=== PATIENT | female | born 1965 | race Caucasian/White ===

== ENCOUNTER → 2020-12-24 | Day surgery (SDC) | payer OTHER ==
[~2020-12-24] MED LIST: BENICAR20 MG PO; FLOMAX0.4 MG PO; LEXAPRO20 MG PO; LIPITOR40 MG PO; NORCO 5-325 TA1 EACH PO; ZOFRAN4 M1 PO
== END | disposition home or self-care (01) ==
LOC: FAS 07:43
DX: Z12.11 Encounter for screening for malignant neoplasm of colon (principal); K57.30 Diverticulosis of large intestine without perforation or abscess without bleeding; I10 Essential (primary) hypertension; M19.90 Unspecified osteoarthritis, unspecified site; F32.9 Major depressive disorder, single episode, unspecified; Z20.822 Contact with and (suspected) exposure to COVID-19; Z87.19 Personal history of other diseases of the digestive system; Z98.890 Other specified postprocedural states; Z80.3 Family history of malignant neoplasm of breast; Z91.013 Allergy to seafood
CPT/HCPCS: J7120

== ENCOUNTER 2021-05-10 12:12 | Emergency (ER) | payer OTHER ==
[~2021-05-10 12:12] MED LIST changes: -FLOMAX0.4 MG PO; -NORCO 5-325 TA1 EACH PO; -ZOFRAN4 M1 PO
[2021-05-10 13:18] LABS: BILIRUBIN NEGATIVE (NEGATIVE); BLOOD 2+ Ery/uL (NEGATIVE); CLARITY CLEAR (CLEAR); COLOR YELLOW (YELLOW); GLUCOSE (U) NORMAL (NORMAL); LEUKOCYTES NEGATIVE Leu/uL (NEGATIVE); NITRITE NEGATIVE (NEGATIVE); PROTEIN NEGATIVE (NEGATIVE); SPECIFIC GRAVITY >=1.030 (1.001-1.030); UROBILINOGEN 0.2 mg/dL (0.2-1.0)
[2021-05-10 13:18] LABS: BASOPHIL 0.6 % (0-2); EOSINOPHIL 0.7 % (0-5); HCT 41.6 % (37.0-47.0); HGB 13.5 g/dl (12.5-16.0); LYMPHOCYTE 24.7 % (15-48); MCH 31.5 pg (25.0-31.0); MCHC 32.5 g/dL (32.0-36.0); MCV 97.2 fL (78.0-100.0); MONOCYTE 6.3 % (0-12); MPV 10.3 fL (6.0-9.5); NEUTROPHIL 67.3 % (41-80); NRBC 0; PLT 243 K/uL (150-400); RBC 4.28 M/uL (4.20-5.40); RDW 12.9 % (11.5-14.0); WBC 8.9 K/uL (4.0-10.5)
[2021-05-10 13:34] LABS: BACTERIA TRACE; URIC ACID CRYSTALS TRACE
[2021-05-10 13:45] LABS: ALBUMIN 4.4 g/dL (3.4-5.0); BILIRUBIN - TOTAL 0.7 mg/dL (0.2-1.0); CREATININE 1.11 mg/dL (0.51-0.95); GLOBULIN (CALCULATION) 3.8 g/dL; POTASSIUM 4.2 mmol/L (3.5-5.1); TOTAL PROTEIN 8.2 g/dL (6.4-8.2)
[2021-05-10] MEDS ORDERED: FLOMAX0.4 MG PO (16:52)
[2021-05-10] MEDS ORDERED: ZOFRAN4 M1 PO (16:52)
[2021-05-10] MEDS ORDERED: NORCO 5-325 TA1 EACH PO (16:57)
== END 2021-05-10 17:17 | disposition home or self-care (01) ==
LOC: FER 12:12
PROVIDERS: Emergency Medicine
DX: N13.2 Hydronephrosis with renal and ureteral calculous obstruction (principal); I10 Essential (primary) hypertension; Z20.822 Contact with and (suspected) exposure to COVID-19
CPT/HCPCS: 36415; 80053; 81001; 82150; 83690; 85025; J1885; J7030; U0002